=== PATIENT | female | born 1995 | race Caucasian/White ===

== ENCOUNTER 2019-11-30 15:01 | Emergency (ER) | payer BC, SELFPAY ==
[2019-11-30 15:02] VITALS: BP 115/71; PULSE 105; PULSE 93; RESP 18; TEMP 36.7; O2SAT 96; O2SAT 97; BMI 26.1
--- NOTE | 2019-11-30 15:16 | CT_ITS ---
STUDY: CT BRAIN WITHOUT CONTRAST REASON FOR EXAM: Female, 23 years old. Headache for 3 days RADIATION DOSAGE (If Supplied By Facility): CTDIvol = ( 44.99 ) mGy, DLP = ( 779.24 ) mGycm TECHNIQUE: Transaxial CT imaging of the brain was performed without administration of intravenous contrast material. Individualized dose optimization techniques were used for this CT. COMPARISON: None. FINDINGS: Normal soft tissue structures. Normal calvarium. Slightly prominent suprasellar cistern which is most likely a normal/benign variant. No visualized dense artery sign. No midline shift. No hydrocephalus. Normal size ventricles and extra-axial spaces for the patient''s age. Normal white matter tracts of the cerebral hemispheres. Normal basal ganglia and thalami. Normal brainstem. Normal cerebellum. There is no intracranial hemorrhage. There are no findings of an acute ischemic infarction. Normal visualized paranasal sinuses. CT/Brain/Head without Contrast IMPRESSION: 1. No demonstrated acute or significant intracranial process. 2. Slightly prominent suprasellar cistern which is most likely a normal/benign variant. Electronically Signed: Rishabh Guthrie MD at 16:48 EDT , Service support ,
--- NOTE | 2019-11-30 15:19 | ED.DCSUM_ITS ---
History of Present Illness Chief Complaint: Headache Informant: Patient Onset: Days Context: Gradual Onset Timing: Intermittent Current Severity: Moderate Maximum Severity: Moderate Narrative: The patient is a 23-year-old female who is otherwise healthy the presents to the emergency department with headache. Patient has been having intermittent headache for the past 3 days. She states that it moves diffusely throughout her head. It will wax and wane. States today, it was its most severe. She denies any visual change. She denies any nausea or vomiting. She has not had photophobia. She is had no neck pain, fever, or chills. She is otherwise been in her normal state of health. Patient denies any history of migraines or seizures. She has not been under significant amount of stress lately. Prior similar symptoms: No Recent Illness/Hospitalization: No Past Medical History - Allergies and Home Meds Allergies/Adverse Reactions: Allergies No Known Allergies Allergy (Verified 11/30/19 15:01) Primary Care Physician: NOT,DEFINED [NON-STAFF] - Prior records reviewed: Yes Past Medical History: None Surgical History: no surgical history Smoking Status: Never smoker Review of Systems General: Denies: Chills, Fever, Sweats Eyes: Denies: Visual changes - bilaterally, Diplopia ENT: Denies: Rhinorrhea, Sore throat Cardiovascular: Denies: Chest pain, Palpitations Respiratory: Denies: Dyspnea, Cough, Dyspnea on exertion Gastrointestinal: Denies: Abdominal pain, Nausea, Vomiting, Diarrhea, Melena, Hematochezia Genitourinary: Denies: Dysuria, Hematuria, Frequency Musculoskeletal: Denies: Back pain, Extremity Pain Skin: Denies: Rash, Wounds Neurological: Reports: Headache. Denies: Weakness, Numbness Physical Exam Vital Signs/Narrative: Vital Signs Temp Pulse Resp BP Pulse Ox 11/30/19 15:02 98.0 F 93 18 115/71 97 Inital Vital Signs reviewed: Yes General: Well nourished, Well developed, No Acute Distress Head: Normocephalic, Atraumatic Eyes: Perrl, EOMI ENT: Moist mucous membranes, No rhinorrhea Neck: Supple, Nontender Cardiovascular: Regular rate, Regular rhythm, No murmurs Respiratory: No distress, CTA bilaterally, Chest nontender Abdomen: Soft, Nontender, Nondistended, Normal bowel sounds Back: Nontender, Normal Inspection Extremities: Nontender, No edema Skin: Normal color, No rash Neurological: Alert, Oriented x3, Cranial nerves II-XII grossly intact, Normal Strength, Normal Sensation Psychological: Normal affect, Normal Mood Diagnostic/Tx/Re-eval Clinical Impression(s) from Imaging Studies Brain CT 11/30/19 15:16 IMPRESSION: 1. No demonstrated acute or significant intracranial process. 2. Slightly prominent suprasellar cistern which is most likely a normal/benign variant. Electronically Signed: Rishabh Guthrie MD at 16:48 EDT , Service support , Abnormal Lab Results 11/30/19 11/30/19 16:20 16:20 WBC 8.8 RBC 4.78 Hgb 14.5 Hct 43.5 MCV 91.0 MCH 30.3 MCHC 33.3 RDW Std Deviation 40.5 RDW Coeff of Kendra 12.2 Plt Count 276 MPV 9.8 Immature Gran % (Auto) 0.300 Neut % (Auto) 70.0 Lymph % (Auto) 22.6 [place] % (Auto) 5.9 Eos % (Auto) 1.0 Baso % (Auto) 0.2 Absolute Neuts (auto) 6.1 Absolute Lymphs (auto) 1.98 Nucleated RBC % 0 Sodium 142 Potassium 4.2 Chloride 107 Carbon Dioxide 30.0 Anion Gap 5 BUN 13 Creatinine 0.73 Estim Creat Clear Calc 119.87 Est GFR (MDRD) Af Amer 124 Est GFR (MDRD) Non-Af 103 BUN/Creatinine Ratio 17.7 Glucose 79 Calcium 9.2 - Medical Decision Making The patient presents with intermittent headache that is worsened over the past 24 hours. It was not sudden onset. It has been gradual and progressive. The patient is not meningitic or encephalopathic. She has had no infectious symptoms. Given her lack of headache history, noncontrast head CT was obtained. This was negative for acute process. The patient was treated with migraine abortive medications with some improvement. Labs are unremarkable. Patient was also given Toradol and Decadron to prevent rebound headache. On reevaluation, she is resting more comfortably. At this point, I do feel that she is safe for outpatient therapy. The patient was counseled on concerning symptoms and reasons to return. She will be discharged home. Impression 1. Headache-improved ED Disposition - Plan for ED Patient: Instructions: ED Headache Unspecified Prescriptions: Acetaminophen/Butalbital/Caffe [Fioricet] 1 tab PO Q4H PRN PRN #20 tab PRN Reason: Headache Prescription Printed Referrals: NOT,DEFINED [NON-STAFF] -
[2019-11-30] MEDS: DiphenhydrAMINE 50 MG/ML Syringe 25 MG IV (16:20)
[2019-11-30] MEDS: proMETHazine 25 MG/ML Syringe 6.25 MG IV (16:20)
[2019-11-30] MEDS: 0.9% Normal Saline 1,000 ML 999 ML IV (16:20)
[2019-11-30 16:30] LABS: Absolute Lymphocyte Count 1.98 X10^3/uL (0.83-4.51); Absolute Neutrophil Count 6.1 X10^3/uL (2.0-7.7); Basophil# 0.02 X10^3/uL; Basophil% 0.2 % (0-1); Eosinophil# 0.09 X10^3/uL; Hematocrit 43.5 % (37-47); Hemoglobin 14.5 g/dL (12.0-15.0); Lymphocyte # 1.98 X10^3/ul (4.0); Lymphocyte % 22.6 % (19-41); Mean Corp Hgb Conc 33.3 g/dL (32-36); Mean Corpuscular Hgb 30.3 pg (27.0-32.0); Mean Platelet Vol. 9.8 fl (6.2-12.0); Monocyte# 0.52 X10^3/uL; Monocyte% 5.9 % (0-10); NRBC Flagged by Analyzer 0 % (0-5); Neutrophil # 6.11 X10^3/uL (2.7-7.7); Platelet Count 276 K/mm3 (150-450); RBC Distribution Width CV 12.2 % (11.6-14.6); RBC Distribution Width SD 40.5 fl (35.1-43.9); Red Blood Count 4.78 M/mm3 (4.2-5.4); White Blood Count 8.8 K/mm3 (4.4-11.0)
[2019-11-30 17:00] LABS: Anion Gap 5 (5-15); BUN 13 mg/dL (7-18); BUN/Creat Ratio 17.7 RATIO (10-20); Calcium,Total 9.2 mg/dL (8.5-10.1); Chloride 107 mmol/L (98-107); Creatinine, Serum 0.73 mg/dL (0.55-1.02); EST Glomerular Filtration Rate 103 mL/min (>60); Est Glom Filt Rate - Afr Amer 124 mL/min (>60); Estimated Creatinine Clearance 119.87 ml/min; Glucose 79 mg/dL (74-106); Potassium 4.2 mmol/L (3.5-5.1); Sodium Level 142 mmol/L (136-145)
[2019-11-30] MEDS: Ketorolac 15 MG/ML Vial IV (17:10)
[2019-11-30] MEDS: dexAMETHasone 10 MG/ML Vial IV (17:10)
[2019-11-30 17:13] VITALS: BP 117/75; PULSE 61; RESP 16; O2SAT 100
[2019-11-30 17:34] VITALS: RESP 16
== END 2019-11-30 17:34 | disposition home or self-care (01) ==
LOC: ED 16:27
PROVIDERS: Emergency Provider Emergency Medicine
DX: R51 Headache (principal)
CPT/HCPCS: 70450; 80048; 85025; 96361; 96374; 96375; 99283; J7030; A4216

== ENCOUNTER 2021-10-06 16:48 | Emergency (ER) | payer OTHER, SELFPAY ==
[2021-10-06 16:48] VITALS: BP 128/89; PULSE 102; RESP 16; TEMP 36.4; O2SAT 100; BMI 33.4
--- NOTE | 2021-10-06 17:25 | EKG12_ITS ---
Test Reason : CP Blood Pressure : / mmHG Vent. Rate : 088 BPM Atrial Rate : 088 BPM P-R Int : 150 ms QRS Dur : 090 ms QT Int : 368 ms P-R-T Axes : 072 073 003 degrees QTc Int : 445 ms Normal sinus rhythm with sinus arrhythmia Septal infarct , age undetermined Abnormal ECG Confirmed by JENNIFER ZARATE, DANIEL ([id number]), makeup editor ZACHERY ROCHA ([id number]) on 10/09/2021 1:28:15 PM Referred By: GRACE Confirmed By:DANIEL RODRIGUEZ MD
--- NOTE | 2021-10-06 17:27 | ED.VIS.CHEST ---
HPI History of Present Illness Chief Complaint: Chest Pain Informant: patient Onset/Context/Timing Onset: Today and Hours Activity at onset: sudden Timing: Continuous Quality: Positive for Heaviness Location: Left Chest Current Severity: Mild Maximum Severity: Mild Worsened By: Nothing Relieved By: Nothing Associated Symptoms: Positive for Palpitations; Negative for Nausea, Vomiting, Diaphoresis, Dyspnea, Cough, Fever, Lightheadedness and Acid Reflux Narrative Narrative: 25-year-old female no seen past medical history. States she woke up at 3 AM this morning with chest tightness across her chest and felt like her heart was racing. Later in the day she developed discomfort to her left arm. She called her primary care provider which I believe is a nurse practitioner order labs and EKG. Patient was sent home but then called later told her EKG was abnormal and she needed to go to a local emergency department. Patient denies any history of cardiac disease. She denies any history of DVT or PE. No significant family history for either. Denies any recent travel, surgery or immobilization. No leg pain or swelling. No hemoptysis. Prior Similar Symptoms: No Recent Illness/Hospitalization: No CVD Risk Factors: Negative for Hypertension, Diabetes, Hypercholesterolemia, Family History 1' </=55 and Smoking PE Risk Factors: Negative for Recent Travel/Surgery, Recent Immobilization, Prior DVT or PE, Cancer and OCP + Smoking + >/=35 TAD Risk Factors: Negative for Marfan's Syndrome and Hypertension PFSH PFSH Medical History no medical history no medical history Home Medications [id number] 1 tab PO Q4H PRN PRN #20 tab 11/30/19 [Rx Last Taken Unknown] Allergy/AdvReac Type Severity Reaction Status Date / Time No Known Allergies Allergy Verified 10/06/21 16:50 Family History no significant family his Surgical History no surgical history Social History Smoking Status: Never smoker ROS ROS ED ROS Narrative Chest pain. Palpitations. Review of Systems ROS Unobtainable: Denies due to encephalopathy Constitutional Constitutional ED: Denies fever(s) or subjective Eyes Eyes: Denies none ENT ENT ED: Denies ear pain Cardiovascular Cardiovascular: Reports as per HPI, chest pain, palpitations and racing heartbeat Respiratory/Chest Respiratory/Chest: Denies cough, dyspnea or sputum Gastrointestinal Gastrointestinal: Denies abdominal pain, nausea or vomiting Genitourinary Genitourinary ED: Denies dysuria Musculoskeletal Musculoskeletal: Denies arthralgias or myalgias Integumentary Denies rash Neurologic Neurologic: Denies headache(s) Psychiatric Psychiatric: Denies depression Endocrine Endocrinology: Denies polyuria Hematologic/Lymphatic Hematologic/Lymphatic: Denies easy bruising Allergic/Immunologic Allergic/Immunologic ED: Denies urticaria EXAM Physical Exam Narrative Exam Narrative: 25-year-old female no acute distress vital signs stable afebrile. Pulse ox 9% on room air no signs hypoxia. HEENT exam unremarkable. Neck nontender. Lungs clear to auscultation bilaterally. Heart regular rhythm rate about 100 no murmur. Abdomen is soft and nontender. Normal bowel sounds no peritoneal signs. She has mild reproducible chest discomfort on the left. Moving all 4 extremities. Equal symmetrical radial pulses. Calves are nontender without edema or cords. Neurologically she is awake and alert. She is mildly anxious. She Const Vital Signs: 10/06/21 16:48 10/06/21 17:33 10/06/21 19:17 Temperature 97.6 F L Temperature Source Temporal Pulse Rate 102 H 81 Respiratory Rate 16 19 H Blood Pressure 128/89 H 109/76 Blood Pressure Mean 102 87 Pulse Ox 100 97 Oxygen Delivery Method Room Air Room Air Room Air 10/06/21 20:46 Temperature Temperature Source Pulse Rate 78 Respiratory Rate 22 H Blood Pressure 116/65 Blood Pressure Mean 82 Pulse Ox 97 Oxygen Delivery Method Room Air Positive well nourished and well developed; Negative for cachectic, contractures or unkempt General Appearance ED: well developed and NAD; Negative for unkempt, cachectic, contractures or pallor Nutritional Appearance: Negative for cachectic HEENT Reports moist mucous membranes normocephalic and atraumatic; Negative for trauma or tenderness Eyes PERRL and EOMs intact bilaterally General Eye ED: Yes pale conjunctiva; Negative for scleral icterus Neck no lymphadenopathy, supple and no JVD General: Negative for tenderness Chest Wall inspection of chest normal and palpation of chest normal Chest: tenderness Resp normal respiratory effort and clear to auscultation bilaterally Effort and Inspection: respiratory distress Auscultation: Negative for rales, rhonchi or wheezes Cardio regular rate, regular rhythm, S1 normal heart sound, S2 normal heart sound and no murmurs Rate: Negative for tachycardic GI normal to inspection, nondistended, normoactive bowel sounds, soft to palpation, non-tender, non-distended and no masses Back/Spine no CVA tenderness General Back: Negative for CVA tenderness Extremity normal to inspection General Extremety ED: Negative for edema or tenderness General Extremity: Negative for edema Neuro oriented x3 Sensorium / Orientation: awake, alert, oriented to person, oriented to place and oriented to time Motor Exam: strength 5/5 throughout Psych mental status grossly normal Appearance: Negative for unkempt Attitude: No agitated Mood & Affect: Negative for depressed, anxious or tearful Skin no rashes or lesions noted and no wounds General Skin Exam: Negative for jaundice or pallor Heart Score History: Slightly/Non-Suspicious ECG: Normal Age: </= 45 years Risk Factors: No Risk Factors Troponin: </= Normal Limit Score: 0 MDM MDM MDM Narrative Medical decision making narrative: 25-year-old female awoke from sleep with palpitations and then later developed chest discomfort. Exam is benign other than some reproducible chest wall pain. She was sent in because she had outpatient EKG that was abnormal. She undergo cardiac work-up. She has no risk factors for PE, Repeat exam patient is doing well at 9:13 PM. We went over all of her test results. She will be discharged home. Lab Data Attestation: I reviewed the patient's lab results. Lab results narrative: CBC normal. D-dimer normal. Electrolytes normal. High-sensitivity troponin normal. Chest x-ray normal. Labs: Laboratory Results - last 24 hr 10/06/21 10/06/21 10/06/21 17:40 17:40 17:40 WBC 8.9 RBC 4.79 Hgb 14.4 Hct 41.7 MCV 87.1 MCH 30.1 MCHC 34.5 RDW Std Deviation 41.1 RDW Coeff of Kendra 13.0 Plt Count 341 MPV 9.5 Immature Gran % (Auto) 0.300 Neut % (Auto) 62.8 Lymph % (Auto) 27.9 [place] % (Auto) 6.6 Eos % (Auto) 2.1 Baso % (Auto) 0.3 Absolute Neuts (auto) 5.6 Absolute Lymphs (auto) 2.48 Nucleated RBC % 0 D-Dimer Quant (PE/DVT) 0.48 Sodium 139 Potassium 4.2 Chloride 107 Carbon Dioxide 29.0 Anion Gap 3 L BUN 17 Creatinine 1.00 Estim Creat Clear Calc 86.00 Est GFR (MDRD) Af Amer 86 Est GFR (MDRD) Non-Af 71 BUN/Creatinine Ratio 17.1 Glucose 87 Calcium 9.5 Troponin I High Sens 5 Radiography Chest X-Ray - ED: 1 View, Read by ED Physician, Read by Radiologist, Heart, Lungs, Mediastinum, Bony Structures and No Acute Disease Diagnostic Testing: Clinical Impression(s) from Imaging Studies Chest X-Ray 10/06/21 18:35 IMPRESSION: No acute cardiopulmonary disease. Electronically Signed: Norris Solo DO at 19:44 EST Reading Location ID and State: [address] [place] [address] Tel [phone], Service support , Chest x-ray normal. Single view portable. Interpreted by myself radiologist. Rhythm Strip Rhythm Strip: Sinus Rhythm Rate: 88 Ectopy: None EKG Initial EKG: Attestation: I personally reviewed and interpreted this EKG as follows: Interpretation: Sinus Rhythm and No Acute Injury Pattern Comments: Normal sinus rhythm rate 88 no acute signs of ST elevation or acute CA. No old EKG available for comparison. Prior EKG tracings: not available for review Discharge Plan Triage Chief Complaint: Chest Pain ED Provider: Patrice Díaz Dx/Rx/DC Orders Clinical Impression: Chest pain Instructions: ED Chest Pain, Uncertain Cause Prescriptions: No Action [id number] 1 TABLET tablet 1 tab PO Q4H PRN PRN (Reason: Headache) Qty: 20 RF: 0 Primary Care Provider: Abigail Melara NP Referrals: Care Physician,No Primary [NON-STAFF] - Abigail Melara NP, PHOTOGRAPHIC ENLARGER OPERATOR-C [Primary Care Provider] - As Needed Activity Restrictions/Additional Instructions: You have some chest wall pain. Ice to chest wall. Motrin for pain and inflammation. Otherwise your tests were normal. No signs of any type of heart issue. No blood clot. Your EKG was basically unremarkable. As was your chest x-ray. Follow-up with your primary care provider as needed. Disposition Disposition: Home, Self Care
[2021-10-06 18:00] LABS: Absolute Lymphocyte Count 2.48 X10^3/uL (0.83-4.51); Absolute Neutrophil Count 5.6 X10^3/uL (2.0-7.7); Basophil# 0.03 X10^3/uL; Basophil% 0.3 % (0-1); Eosinophil# 0.19 X10^3/uL; Eosinophils% 2.1 % (0-5); Hematocrit 41.7 % (37-47); Hemoglobin 14.4 g/dL (12.0-15.0); Lymphocyte # 2.48 X10^3/ul (0.83-4.51); Lymphocyte % 27.9 % (19-41); Mean Corp Hgb Conc 34.5 g/dL (32-36); Mean Corpuscular Hgb 30.1 pg (27.0-32.0); Mean Corpuscular Volume 87.1 fL (81-99); Mean Platelet Vol. 9.5 fl (6.2-12.0); Monocyte# 0.59 X10^3/uL; Monocyte% 6.6 % (0-10); NRBC Flagged by Analyzer 0 % (0-5); Neutrophil # 5.56 X10^3/uL (2.7-7.7); Neutrophil % 62.8 % (47-70); Platelet Count 341 K/mm3 (150-450); RBC Distribution Width SD 41.1 fl (35.1-43.9); Red Blood Count 4.79 M/mm3 (4.2-5.4); White Blood Count 8.9 K/mm3 (4.4-11.0)
[2021-10-06 18:04] LABS: D-Dimer Quantitative (DVT/PE) 0.48 FEU/ug/m (0.27-0.49)
[2021-10-06 18:10] LABS: Anion Gap 3 (5-15); BUN 17 mg/dL (7-18); BUN/Creat Ratio 17.1 RATIO (10-20); Calcium,Total 9.5 mg/dL (8.5-10.1); Chloride 107 mmol/L (98-107); EST Glomerular Filtration Rate 71 mL/min (>60); Est Glom Filt Rate - Afr Amer 86 mL/min (>60); Glucose 87 mg/dL (74-106); Potassium 4.2 mmol/L (3.5-5.1); Sodium Level 139 mmol/L (136-145); Troponin-I HS 5 pg/mL (3.0-54.0)
--- NOTE | 2021-10-06 18:35 | RAD_ITS ---
STUDY: X-RAY CHEST REASON FOR EXAM: Female, 25 years old. Chest pain. TECHNIQUE: Single AP portable view of the chest. COMPARISON: None. FINDINGS: The lungs are clear and expanded. There is no demonstrated pleural abnormality. Normal size heart. Normal mediastinum and muriel. Normal visualized pulmonary arteries. Normal visualized aortic arch and descending thoracic aorta. Normal visualized thoracic spine. Normal visualized ribs, clavicles, and shoulders. There is no demonstrated abnormality of the visualized soft tissue structures of the upper abdomen. RAD/Chest 1 View (Portable) IMPRESSION: No acute cardiopulmonary disease. Electronically Signed: Norris Solo DO at 19:44 EST ,
[2021-10-06 19:17] VITALS: BP 109/76; PULSE 81; RESP 19; O2SAT 97
[2021-10-06 20:46] VITALS: BP 116/65; PULSE 78; RESP 22; O2SAT 97
== END 2021-10-06 21:35 | disposition home or self-care (01) ==
PROVIDERS: Emergency Provider Emergency Medicine; PCP Nurse Practitioner Family; Visit Provider Emergency Medicine
DX: R07.9 Chest pain, unspecified (principal)
CPT/HCPCS: 71045; 80048; 84484; 85025; 85379; 93005; 99285; A4216

== ENCOUNTER 2021-10-22 09:32 | Outpatient (CLI) | payer OTHER, SELFPAY | END 2021-10-22 23:59 | disposition home or self-care (01) | LOC: PSN 09:35 | PROVIDERS: PCP Nurse Practitioner Family; Referring Provider Nurse Practitioner Family; Visit Provider Nurse Practitioner Family | DX: R07.89 Other chest pain (principal); R00.2 Palpitations; R06.02 Shortness of breath | CPT/HCPCS: 93225; 93226 ==

== ENCOUNTER 2021-11-24 12:31 | Outpatient (CLI) | payer OTHER, SELFPAY ==
--- NOTE | 2021-11-24 12:35 | STEWCON_ITS ---
Reason For Study: Atypical chest pain, exertional shortness of breath Stress Results Protocol: Stress Echocardiogram-[place] Protocol Maximum Predicted HR: 194 bpm Target HR: 165 bpm % Maximum Predicted HR: 92 % Heart Stage Duration Rate BP Comment (mm:ss) (bpm) Baseline 75 118/84Pt denies any chest pain. Stage 1 3:00 123 128/80Patient denies chest pain or palpitations Stage 2 3:00 148 136/80Patient denies chest pain Stage 3 3:00 166 144/80At 8:30 patient complained of sharp left side chest pain rated 4/10 Patient complains of sharp left sided chest pain 4/10. Mild Stage 4 0:30 179 / shortness of breath Patient states that chest pain is gone by 3:00 into recovery. 5ml Recovery 93 120/80total Definity used per protocol Stress Duration: 9:30 mm:ss Maximum Stress HR: 179 bpm METS: 11 Baseline Echocardiogram Findings Stress Echo Wall motion Data Resting WM Intermediate WM Stress WM Resting Wall Motion Wall Motion Stress All segments Normal. All segments Hyperkinetic. Ejection Fraction 55 %. Ejection Fraction 65 %. Stress Results Heart rate response: Technically adequate: Greater than 85% predicted maximal heart rate Blood pressure response: Normal resting blood pressure-appropriate response Dysrhythmias: None Functional capacity: Good Stopped secondary to: Chest discomfort and shortness of breath. EKG Data Baseline ECG: Normal sinus rhythm. Peak exercise ECG: No obvious ECG changes. Symptoms with Stress The patient complained of sharp left-sided chest discomfort near peak exercise with subsequent spontaneous resolution in recovery. ECHO/Stress Test Echo W/Contrast Interpretation Summary Contrast injection performed Negative (adequate) stress echocardiogram Ordering Physician: Abigail Melara Referring Physician: Abigail Melara Performed By: Jordyn Goss, ATUL, RVT
== END 2021-11-24 23:59 | disposition home or self-care (01) ==
LOC: CVS 12:33
PROVIDERS: PCP Nurse Practitioner Family; Referring Provider Nurse Practitioner Family; Visit Provider Nurse Practitioner Family
DX: R06.02 Shortness of breath (principal); R07.89 Other chest pain; R00.2 Palpitations
CPT/HCPCS: 93017; 93350; Q9957; A4216; C8928